=== PATIENT | male | born 1945 | race Caucasian/White ===

== ENCOUNTER 2019-02-27 17:28 | Outpatient (CLI) | payer MEDICARE, BC ==
--- NOTE | 2019-02-27 18:37 | RAD ---
RIGHT SHOULDER: 02/27/19 Three views. HISTORY: Shoulder and neck pain. FINDINGS/IMPRESSION: Degenerative changes at the glenohumeral joint. Degenerative changes at the AC joint. No fracture mohini ntified. No dislocation. There are degenerative changes. No acute process. POS: AGW
--- NOTE | 2019-02-27 19:40 | RAD ---
CERVICAL SPINE: 02/27/19 HISTORY: Neck pain. Moderate degenerative changes of the mid cervical spine noted. There is loss of disc space at all lev els of the cervical spine. Anterior osteophytes. Posterior spondylosis. Slight posterolisthesis at C4 -5. Vertebral body height is maintained. Alignment is otherwise preserved. IMPRESSION: Moderate degenerative changes of the mid cervical spine. POS: AGW
== END 2019-02-27 17:29 | disposition home or self-care (01) ==
LOC: SCSRAD 17:28
PROVIDERS: ATTEND Family Medicine
DX: M47.22 Other spondylosis with radiculopathy, cervical region (principal)
CPT/HCPCS: 72040

== ENCOUNTER 2019-12-02 09:34 | Outpatient (CLI) | payer MEDICARE, BC ==
--- NOTE | 2019-12-02 10:06 | RAD ---
EXAM: 3 views of the right knee HISTORY: Chronic right knee pain for 6 years COMPARISON: None FINDINGS: No knee effusion is seen. There is no evidence of acute fracture or dislocation. Mild to mo derate degenerative changes are seen, greatest in the patellofemoral compartment. No soft tissue swelling is present. IMPRESSION: Moderate right knee osteoarthritis
== END 2019-12-02 09:35 | disposition home or self-care (01) ==
LOC: SCSRAD 09:34
PROVIDERS: ATTEND Family Medicine
DX: M25.562 Pain in left knee (principal); M53.3 Sacrococcygeal disorders, not elsewhere classified

== ENCOUNTER 2020-01-27 11:53 | Outpatient (CLI) | payer MEDICARE, BC ==
[2020-01-27 13:16] LABS: Mean Corpuscular HGB CONC 34.9 g/dL (32.0-36.0); Mean Corpuscular Volume 91.7 fL (78.0-98.0); Mean Platelet Volume 6.9 fL (7.4-10.4); Platelet Count 304 thou/uL (130-400); RBC Distribution Width 11.8 % (11.5-14.5); Red Blood Cell (RBC) Count 5.02 mill/uL (4.70-6.10); White Blood Cell (WBC) Count 5.3 thou/uL (4.8-10.8)
[2020-01-27 13:20] LABS: Bacteria/HPF None Seen HPF (None Seen); Bilirubin Negative (Negative); Blood, Urine Trace (Negative); Clarity Clear (Clear); Glucose, Urine (Dipstick) Normal (Negative); Leukocyte Negative Leu/uL (Negative); Nitrite Negative (Negative); Protein, Urine (Dipstick) Negative (Neg-Trace); Squamous Epithelial 0-3 HPF (0-3); Urobilinogen Normal mg/dL (Less than 2); WBC/HPF 0-3 HPF (0-3)
[2020-01-27 13:21] LABS: PTT 28.4 SEC (22.9-36.1); Prothrombin Time 13.5 SEC (12.0-14.7)
[2020-01-27 13:33] LABS: Anion Gap 13 mmol/L (10-20); BUN (Urea Nitrogen) 17 mg/dL (8.4-25.7); Calc. Creatinine Clearance 0 mL/min (70-130); Calcium 9.5 mg/dL (7.8-10.44); Carbon Dioxide 22 mmol/L (23-31); Chloride 106 mmol/L (98-107); Estimated GFR-MDRD Greater than 90; Glucose 99 mg/dL (83-110); Potassium 4.1 mmol/L (3.5-5.1); Sodium 137 mmol/L (136-145)
--- NOTE | 2020-01-27 22:48 | EKG ---
Test Reason : PRE OP Blood Pressure : / mmHG Vent. Rate : 050 BPM Atrial Rate : 050 BPM P-R Int : 246 ms QRS Dur : 174 ms QT Int : 472 ms P-R-T Axes : 025 -45 039 degrees QTc Int : 430 ms Sinus bradycardia with 1st degree A-V block Left axis deviation Left bundle branch block Abnormal ECG When compared with ECG of 10-MAY-2015 10:50, No significant change was found Confirmed by Jarrod TRAN ([id number]) on 01/27/2020 10:48:09 PM Referred By: MARNIE Confirmed By:Jarrod TRAN
== END 2020-01-27 11:54 | disposition home or self-care (01) ==
LOC: LABBT 11:53
PROVIDERS: ATTEND Urology
DX: Z01.818 Encounter for other preprocedural examination (principal); R31.0 Gross hematuria; N39.41 Urge incontinence; M15.9 Polyosteoarthritis, unspecified; E11.9 Type 2 diabetes mellitus without complications; Z68.35 Body mass index [BMI] 35.0-35.9, adult
CPT/HCPCS: 80048; 81001; 85027; 85610; 85730; 87086; 93005; 93010

== ENCOUNTER 2020-01-29 05:56 | Day surgery (SDC) | payer MEDICARE, BC ==
[2020-01-27 12:14] VITALS: BMI 34.4
[2020-01-29] MEDS ORDERED: Fentanyl 100 MCG/2 ML VIAL ONE ×2 (06:28→07:19)
[2020-01-29] MEDS ORDERED: Levofloxacin 500 mg/D5W 100 ml Premix Bag ONE (06:51)
[2020-01-29] MEDS ORDERED: B & O ONE (07:15)
[2020-01-29] MEDS ORDERED: mitoMYcin 40 MG in Water For Injection,Sterile 20 ML IV SCH (09:00)
[2020-01-29] MEDS ORDERED: SUGAMMADEX SODIUM 500 MG/5 ML VIAL ONE (09:03)
[2020-01-29] MEDS ORDERED: Oxybutynin 5 MG TAB ONE (09:34)
[2020-01-29] MEDS ORDERED: Rocuronium Bromide 10 MG/ML (10ML VIAL) ONE (09:45)
[2020-01-29] MEDS ORDERED: Ondansetron PF 4 MG/2 ML Vial ONE (09:45)
[2020-01-29] MEDS ORDERED: PROPOFOL 200 MG/20 ML VIAL ONE (09:45)
[2020-01-29] MEDS ORDERED: Lidocaine 1% PF 5 ML VIAL ONE (09:45)
[2020-01-29] MEDS ORDERED: Dexamethasone 20 MG/5 ML VIAL ONE (09:45)
[2020-01-29] MEDS ORDERED: Glycopyrrolate 0.2 MG/ML 5 ML SYRINGE ONE (09:45)
--- NOTE | 2020-01-29 14:00 | OP ---
DATE OF PROCEDURE: 01/29/2020 SERVICE: Urology. PREOPERATIVE DIAGNOSIS: Bladder cancer. POSTOPERATIVE DIAGNOSIS: Bladder cancer. PROCEDURE PERFORMED: Transurethral resection of the bladder tumor and postoperative instillation of mitomycin-C. INDICATION FOR PROCEDURE: Mr. Sultana is a 74-year-old white male, who initially presented to me with gross hematuria. He had a CT done by his primary care doctor, which demonstrated a calcified bladder mass. Upon cystoscopy, he was noted to have a large primary bladder tumor on the dome of his bladder, along with several satellite lesions consistent with cancer surrounding the primary tumor. I had recommended resection of the primary tumor and resection and fulguration of the additional tumors with postoperative instillation of mitomycin-C with all risks and benefits discussed and he agreed to proceed forward. DESCRIPTION OF PROCEDURE: After identification of armband and verification of consent, the patient was brought back to the operating room, where he underwent general anesthesia with endotracheal intubation. He was then placed in dorsal lithotomy position and prepped and draped in usual sterile fashion. After appropriate time-out, a lubricated 26-Azerbaijani resectoscope sheath with visual obturator was passed through the urethra into the bladder. The prostate was relatively well open. A full cystoscopy was performed, which demonstrated the tumor at the dome of the bladder with surrounding lesions, but no other unusual lesions or secondary tumors noted anywhere else in the bladder. Both ureters were in the orthotopic location. The visual obturator was switched out for the bipolar gyrus resectoscope loop for the bladder with manual compression on the bladder to bring the bladder dome down. The tumor was resected in its entirety along with the base and the surrounding tumors were either fulgurated for destruction or resected if they were little on the larger side. Upon completion, meticulous hemostasis was performed of the underlying tissues with the coag function, there was no bleeding at the end of the case and all visible tumor had been destroyed. The tumor that I collected at the bottom of the bladder from resection was evacuated using the resectoscope loop and sent off for routine pathologic evaluation. The final cystoscopy did not demonstrate any other concerning lesions. The cystoscope was then removed. An 18-Azerbaijani Ferrell catheter was then placed into the patient's bladder. The patient was then taken out of positioning, awakened, and taken to PACU for recovery in stable condition. Of note, after the patient arrived in recovery, 40 mg of mitomycin-C was instilled into the patient's bladder with a catheter plug placed into the patient's bladder along with 16-A B and O suppository. Further documentation on the mitomycin-C can be found in the PACU records. COMPLICATIONS: None. ESTIMATED BLOOD LOSS: Minimal. RETAINED TUBES AND DRAINS: 18-Azerbaijani Ferrell catheter, which will be removed upon completion of the required time with mitomycin-C. SPECIMENS: Bladder tumor for pathologic evaluation. DISPOSITION: The patient will be discharged home, and follow up with me in approximately 1 to 2 weeks for a postop check to go over his pathology results. Job ID: [id number]
== END 2020-01-29 11:30 | disposition home or self-care (01) ==
LOC: SDC 05:56
PROVIDERS: ATTEND Urology
PROC: 0T5B8ZZ Destruction of Bladder, Via Natural or Artificial Opening Endoscopic (ICD-10-PCS; principal; 2020-01-29)
DX: C67.1 Malignant neoplasm of dome of bladder (principal); N39.41 Urge incontinence; E11.9 Type 2 diabetes mellitus without complications; M15.0 Primary generalized (osteo)arthritis; I10 Essential (primary) hypertension; G89.29 Other chronic pain; M54.9 Dorsalgia, unspecified; Z79.82 Long term (current) use of aspirin; Z79.899 Other long term (current) drug therapy; Z88.3 Allergy status to other anti-infective agents; Z91.048 Other nonmedicinal substance allergy status
CPT/HCPCS: 52240; 88307; 88341; 88342; J9280; J1100; J1956; J2001; J2405; J2704; J3010

== ENCOUNTER 2020-02-22 06:34 | Outpatient (CLI) | payer MEDICARE, BC ==
[2020-02-22 12:34] LABS: Bacteria/HPF None Seen HPF (None Seen); Bilirubin Negative (Negative); Blood, Urine Negative (Negative); Clarity Clear (Clear); Glucose, Urine (Dipstick) Normal (Negative); Leukocyte Negative Leu/uL (Negative); Nitrite Negative (Negative); Protein, Urine (Dipstick) 10 mg/dL (Neg-Trace); RBC/HPF 0-3 HPF (0-3); Squamous Epithelial None Seen HPF (0-3); Urobilinogen Normal mg/dL (Less than 2); WBC/HPF 0-3 HPF (0-3)
[2020-02-22 12:35] LABS: Hemoglobin 16.2 g/dL (14.0-18.0); Mean Corpuscular HGB CONC 34.4 g/dL (32.0-36.0); Mean Corpuscular Hemoglobin 32.4 pg (27.0-31.0); Mean Corpuscular Volume 94.1 fL (78.0-98.0); Mean Platelet Volume 6.9 fL (7.4-10.4); Platelet Count 306 thou/uL (130-400); RBC Distribution Width 11.9 % (11.5-14.5); Red Blood Cell (RBC) Count 5.01 mill/uL (4.70-6.10); White Blood Cell (WBC) Count 6.2 thou/uL (4.8-10.8)
[2020-02-22 12:39] LABS: PTT 28.5 SEC (22.9-36.1)
[2020-02-22 13:03] LABS: Anion Gap 15 mmol/L (10-20); BUN (Urea Nitrogen) 14 mg/dL (8.4-25.7); Calc. Creatinine Clearance 0 mL/min (70-130); Calcium 9.5 mg/dL (7.8-10.44); Carbon Dioxide 23 mmol/L (23-31); Chloride 105 mmol/L (98-107); Estimated GFR-MDRD Greater than 90; Glucose 107 mg/dL (83-110); Potassium 4.1 mmol/L (3.5-5.1); Sodium 139 mmol/L (136-145)
== END 2020-02-22 06:35 | disposition home or self-care (01) ==
LOC: LABBT 06:34
PROVIDERS: ATTEND Urology
DX: Z01.812 Encounter for preprocedural laboratory examination (principal); N32.89 Other specified disorders of bladder
CPT/HCPCS: 80048; 81001; 85027; 85610; 85730; 87086

== ENCOUNTER 2020-02-25 05:55 | Day surgery (SDC) | payer MEDICARE, BC ==
[2020-02-22 10:06] VITALS: BMI 34.0
[2020-02-25] MEDS ORDERED: Levofloxacin 500 mg/D5W 100 ml Premix Bag ONE (06:27)
[2020-02-25] MEDS ORDERED: Fentanyl 250 MCG/5 ML VIAL ONE (06:40)
[2020-02-25] MEDS ORDERED: B & O ONE (07:43)
[2020-02-25] MEDS ORDERED: EPHEDRINE 25 MG/5 ML SYRINGE ONE (11:50)
[2020-02-25] MEDS ORDERED: Glycopyrrolate 0.2 MG/ML 5 ML SYRINGE ONE (11:50)
[2020-02-25] MEDS ORDERED: Rocuronium Bromide 10 MG/ML (10ML VIAL) ONE (11:50)
[2020-02-25] MEDS ORDERED: Succinylcholine Chloride 20 MG/ML 10 ml SYRINGE FS ONE (11:50)
[2020-02-25] MEDS ORDERED: PROPOFOL 200 MG/20 ML VIAL ONE (11:50)
[2020-02-25] MEDS ORDERED: Lidocaine 1% PF 5 ML VIAL ONE (11:50)
[2020-02-25] MEDS ORDERED: Ondansetron PF 4 MG/2 ML Vial ONE (11:50)
[2020-02-25] MEDS ORDERED: Dexamethasone 20 MG/5 ML VIAL ONE (11:50)
--- NOTE | 2020-02-25 11:58 | OP ---
DATE OF PROCEDURE: 02/25/2020 PREOPERATIVE DIAGNOSIS: Bladder cancer. POSTOPERATIVE DIAGNOSIS: Bladder cancer. PROCEDURE PERFORMED: Transurethral resection of bladder tumor base, approximately 2 to 5 cm. INDICATIONS FOR PROCEDURE: Mr. Sultana is a 75-year-old white male with previously diagnosed bladder cancer, high-grade T1 urothelial carcinoma, status post TURBT plus mitomycin-C. Postoperatively, his pathology came back as described above, but there was inadequate amount of muscle present in the specimen. I discussed with the patient going back to get more detrusor muscle for final staging and accurate presentation of his cancer. Risks and benefits were discussed and he agreed to proceed forward. DESCRIPTION OF PROCEDURE: After identification of armband and verification of consent, the patient was brought back to the operating room. He underwent general anesthesia with endotracheal intubation. He was then placed in a dorsal lithotomy position and prepped and draped in usual sterile fashion. After appropriate time-out, a lubricated 26-Spanish resectoscope sheath was passed with ease through the urethra into the bladder. The previous resection site was noted and was not bleeding and was granulating in nicely. Using the bipolar bladder loop, resection was carried out underneath the previous resection site to resect deeper into the detrusor muscle. Resection was carried out in a wider area than the original resection to ensure that more tissue was obtained. This was then sent off for routine pathologic evaluation. Meticulous hemostasis was performed on the bladder tumor base. Once completely dry, the bladder was inspected, and after all chips were removed, the cystoscope was used to drain the bladder, then removed. The patient was then taken out of lithotomy, awakened, taken to PACU for recovery in stable condition. COMPLICATIONS: None. ESTIMATED BLOOD LOSS: Minimal. RETAINED TUBES AND DRAINS: None. SPECIMENS: Bladder tumor base. DISPOSITION: The patient will be discharged home, and follow up with me in approximately 1 to 2 weeks for postop check. Job ID: [id number]
== END 2020-02-25 09:38 | disposition home or self-care (01) ==
LOC: SDC 05:55
PROVIDERS: ATTEND Urology
PROC: 0TBB8ZZ Excision of Bladder, Via Natural or Artificial Opening Endoscopic (ICD-10-PCS; principal; 2020-02-25)
DX: C67.9 Malignant neoplasm of bladder, unspecified (principal); E11.9 Type 2 diabetes mellitus without complications; E78.5 Hyperlipidemia, unspecified; I10 Essential (primary) hypertension; M19.90 Unspecified osteoarthritis, unspecified site; N39.41 Urge incontinence; Z79.899 Other long term (current) drug therapy; Z91.048 Other nonmedicinal substance allergy status
CPT/HCPCS: 52235; J1956; J3010; 88307; J1100; J2001; J2405; J2704